=== PATIENT | female | born 1975 | race Caucasian/White ===

== ENCOUNTER → 2018-03-21 | Outpatient (CLI) | payer BC, MEDICARE, OTHER ==
[~2018-03-21] MED LIST: ALBIPROI INH; ALBU90I INH; ALBU90OI INH; ALBU90OI6 INH; ALBU90OI61 INH; ALPR.25 PO; AMOCLA500 PO; ATOR40TA; AZIT250 PO; Atarax10 MG PO; BENADRYL25 MG PO; CELE100; CELE200; CEPH250A PO; CEPH500; CEPH500 PO; CIPR500; CIPR500 PO; CLIN150; CLIN300 IV; CLIN300 PO; CLINDAMYCIN; CLOT1TC TOP; Cleocin HCl300 MG PO; DIPH50 PO; DOXY100 PO; DOXY100T53 PO; DULO30; Depo-Prove150 MG/11 IM; FAMO40 PO; FENT100TP; FEXPSEER PO; FLUC100 PO; FLUSAL1005 IH; FLUSAL115 IH; HYDACE10B; HYDACE5; HYDACE5 PO; HYDACE7.5; HYDMOR2 PO; LEVO750 PO; LISI20 PO; LORA.5; MEDR150I IM; MELA3 PO; MELATONIN10 M3 PO; METF850 PO; METPRE4DP PO; METR500 PO; MONT10T PO; MULVITA; MUPI2TO TOP; OXYACE5T PO; OXYC10ER; OXYC10ER PO; OXYC20ER; OXYC5; OXYC5 PO; PENVK500; PENVK500 PO; PRED20 PO; PREG75; PROM25; PROM25 PO; Pravachol40 MG PO; RXCLIN PO; RXHYDACE PO; RXHYDMOR2 PO; Roxicodone5 MG PO; SERT100; SERT100 PO; SULTRIDS PO; SUMA25; SUMA25 PO; TIZA4; TOPI25; VALA500 PO; VENL75ER; Ventolin Soln3 ML INH; Vibramycin100 MG PO; ZANAFLEX; Zanaflex4 MG PO; Zithromax250 MG PO; [UNRECOGNIZED DRUG - CODE] PO; [UNRECOGNIZED DRUG - OTHER]
[2018-03-22 15:06] LABS: HPV 16 Negative (Negative); HPV 18 Negative (Negative); HPV OTHER HR TYPES Negative (Negative)
== END | disposition home or self-care (01) ==
LOC: LAB SHORT 10:23 → LAB 10:23
PROVIDERS: Obstetrics & Gynecology
DX: Z01.419 Encounter for gynecological examination (general) (routine) without abnormal findings (principal)
CPT/HCPCS: 87624; G0123

== ENCOUNTER → 2018-07-28 | Outpatient (CLI) | payer BC, MEDICARE, OTHER | END | disposition home or self-care (01) | LOC: LAB SHORT 10:50 → LAB 10:50 | DX: N39.0 Urinary tract infection, site not specified (principal) | CPT/HCPCS: 87077; 87086; 87186 ==

== ENCOUNTER → 2018-11-03 | Outpatient (CLI) | payer BC, MEDICARE, OTHER | END | disposition home or self-care (01) | LOC: LAB 10:30 → LAB SHORT 10:30 | DX: N31.9 Neuromuscular dysfunction of bladder, unspecified (principal); R30.0 Dysuria | CPT/HCPCS: 87077; 87086; 87186 ==

== ENCOUNTER → 2018-11-29 | Outpatient (CLI) | payer BC, MEDICARE, OTHER | END | disposition home or self-care (01) | LOC: LAB 15:13 → LAB SHORT 15:13 | DX: N89.9 Noninflammatory disorder of vagina, unspecified (principal) | CPT/HCPCS: 87529 ==

== ENCOUNTER → 2018-12-01 | Outpatient (CLI) | payer BC, MEDICARE, OTHER | END | disposition home or self-care (01) | LOC: LAB 09:15 → LAB SHORT 09:15 | DX: N39.0 Urinary tract infection, site not specified (principal) | CPT/HCPCS: 87077; 87086; 87186 ==

== ENCOUNTER → 2018-12-18 | Outpatient (CLI) | payer BC, MEDICARE, OTHER | END | disposition home or self-care (01) | LOC: LAB SHORT 18:12 → LAB 18:12 | DX: N39.0 Urinary tract infection, site not specified (principal) | CPT/HCPCS: 87086 ==

== ENCOUNTER 2019-02-19 10:50 | Emergency (ER) | payer BC, MEDICARE, OTHER ==
[~2019-02-19] VITALS: Ht 172.7 cm; Wt 91.6 kg
== END 2019-02-19 12:40 | disposition home or self-care (01) ==
LOC: ER 10:50
DX: S93.402A Sprain of unspecified ligament of left ankle, initial encounter (principal); X58.XXXA Exposure to other specified factors, initial encounter; Z88.0 Allergy status to penicillin; Z88.8 Allergy status to other drugs, medicaments and biological substances; Z88.2 Allergy status to sulfonamides; Z88.5 Allergy status to narcotic agent; Z79.899 Other long term (current) drug therapy; Z79.84 Long term (current) use of oral hypoglycemic drugs; I10 Essential (primary) hypertension; E11.9 Type 2 diabetes mellitus without complications; F41.9 Anxiety disorder, unspecified; G43.909 Migraine, unspecified, not intractable, without status migrainosus; F17.210 Nicotine dependence, cigarettes, uncomplicated
CPT/HCPCS: 73610; 99283-25

== ENCOUNTER 2019-03-07 22:02 | Emergency (ER) | payer BC, MEDICARE, OTHER ==
[~2019-03-07] VITALS: Ht 172.7 cm; Wt 97.1 kg
[2019-03-07 23:50] LABS: Source, Urine Catheter
[2019-03-07 23:52] LABS: Bilirubin, Urine Neg (Neg); Blood, Urine 4+ (Neg); Glucose Qualitative, Urine Neg (Neg); Ketones, Urine 1+ (Neg); Leukocyte Esterase, Urine 3+ (Neg); Nitrite, Urine Neg (Neg); Protein, Urine 2+ (Neg); Specific Gravity, Urine 1.025 (1.003-1.022); Urobilinogen, Urine 1+ (Normal)
[2019-03-08 00:10] LABS: Appearance, Urine Cloudy (Clear); Color, Urine Yellow (P-Yellow)
[2019-03-08 00:11] LABS: Amorphous Mod (0-Heavy); Bacteria Mod /hpf; Calcium Oxalate Crystals Mod /hpf; Squamous Epithelial Cells Few /hpf (Few); White Blood Cells, Urine 25-50 /hpf (0-5)
[2019-03-08] MEDS ORDERED: Cipro500 MG PO (00:50)
== END 2019-03-08 01:03 | disposition home or self-care (01) ==
LOC: ER 22:02
PROVIDERS: Emergency Medicine
DX: T83.038A Leakage of other urinary catheter, initial encounter (principal); N39.0 Urinary tract infection, site not specified; Z88.0 Allergy status to penicillin; Z88.8 Allergy status to other drugs, medicaments and biological substances; Z88.5 Allergy status to narcotic agent; Z88.2 Allergy status to sulfonamides; Z79.899 Other long term (current) drug therapy; Z79.84 Long term (current) use of oral hypoglycemic drugs; J44.9 Chronic obstructive pulmonary disease, unspecified; E11.9 Type 2 diabetes mellitus without complications; F17.210 Nicotine dependence, cigarettes, uncomplicated
CPT/HCPCS: 81001; 87086; 99283

== ENCOUNTER 2019-03-20 19:48 | Emergency (ER) | payer BC, MEDICARE, OTHER ==
[~2019-03-20] VITALS: Ht 172.7 cm; Wt 97.1 kg
[~2019-03-20 19:48] MED LIST changes: +Cipro500 MG PO
[2019-03-20 20:35] LABS: BASOPHILS ABSOLUTE AUTO 0.02 K/mm3 (0.00-0.23); BASOPHILS PERCENT AUTO 0 % (0-2); EOSINOPHILS ABSOLUTE AUTO 0.25 K/mm3 (0.00-0.68); EOSINOPHILS PERCENT AUTO 3 % (0-6); Hematocrit 40.4 % (33.0-51.0); Hemoglobin 13.7 g/dL (11.5-16.0); IMMATURE GRAN ABSOLUTE AUTO 0.01 K/mm3 (0.00-0.10); IMMATURE GRAN PERCENT AUTO 0 % (0-1); LYMPHOCYTES ABSOLUTE AUTO 2.52 K/mm3 (0.84-5.20); LYMPHOCYTES PERCENT AUTO 27 % (21-46); MONOCYTES ABSOLUTE AUTO 0.57 K/mm3 (0.16-1.47); MONOCYTES PERCENT AUTO 6 % (4-13); Mean Corpuscular HGB 32.9 pg (26.0-34.0); Mean Corpuscular HGB Conc 33.9 g/dL (31.5-36.5); Mean Corpuscular Volume 97 fL (80-100); Mean Platelet Volume 9.1 fL (9.1-12.4); NEUTROPHILS ABSOLUTE AUTO 6.03 K/mm3 (1.96-9.15); NEUTROPHILS PERCENT AUTO 64 % (41-73); Platelet Count 325 K/mm3 (150-400); RDW Coefficient Variation 13.4 % (11.7-14.2); RDW Standard Deviation 47.9 fL (35.1-46.3); Red Blood Cell Count 4.17 M/mm3 (3.80-5.20)
[2019-03-20 20:54] LABS: Alanine Aminotransfer (ALT/SGP 20 U/L (12-78); Albumin, Blood 3.8 g/dL (3.4-5.0); Albumin/Globulin Ratio 1.1 (0.8-1.8); Alk Phos 131 U/L (50-136); Anion Gap 7 mmol/L (6-16); Aspartate Aminotrans (AST/SGOT 16 U/L (12-37); Bilirubin, Total 0.5 mg/dL (0.1-1.0); Blood Urea Nitrogen 13 mg/dL (8-24); Bun/Creatinine Ratio 18.4 (12.0-20.0); CO2, Blood 25 mmol/L (21-32); Calcium, Blood 8.8 mg/dL (8.5-10.1); Chloride, Blood 109 mmol/L (98-108); Creatinine, Blood 0.71 mg/dL (0.40-1.00); Globulin, Blood 3.6 g/dL (2.2-4.0); Glomerular Filtration Rate >60 (60-); Glucose, Blood 148 mg/dL (70-99); Sodium, Blood 141 mmol/L (136-145); Total Protein, Blood 7.4 g/dL (6.4-8.2)
[2019-03-20 21:23] LABS: Source, Urine Urostomy Bag
[2019-03-20 21:25] LABS: Bilirubin, Urine Neg (Neg); Blood, Urine 4+ (Neg); Glucose Qualitative, Urine Neg (Neg); Ketones, Urine 1+ (Neg); Leukocyte Esterase, Urine 3+ (Neg); Nitrite, Urine Neg (Neg); Protein, Urine 3+ (Neg); Urobilinogen, Urine 1+ (Normal)
[2019-03-20 21:26] LABS: Appearance, Urine Cloudy (Clear); Color, Urine Yellow (P-Yellow)
[2019-03-20 21:28] LABS: Bacteria Few /hpf; Mucus Light ({null, 0-Heavy}); Squamous Epithelial Cells Few /hpf (Few); Yeast/Fungi Urine Mod /hpf
== END 2019-03-20 22:05 | disposition home or self-care (01) ==
LOC: ER 19:48
PROVIDERS: Physician Assistant
DX: N39.0 Urinary tract infection, site not specified (principal); J44.9 Chronic obstructive pulmonary disease, unspecified; E11.9 Type 2 diabetes mellitus without complications; F17.210 Nicotine dependence, cigarettes, uncomplicated; Z88.0 Allergy status to penicillin; Z88.6 Allergy status to analgesic agent; Z91.09 Other allergy status, other than to drugs and biological substances; Z88.2 Allergy status to sulfonamides; Z88.5 Allergy status to narcotic agent; Z88.8 Allergy status to other drugs, medicaments and biological substances; Z79.899 Other long term (current) drug therapy; Z79.84 Long term (current) use of oral hypoglycemic drugs
CPT/HCPCS: 36415; 80053; 81001; 85025; 87070; 87075; 87086; 87205; 99283

== ENCOUNTER → 2019-07-27 | Outpatient (CLI) | payer BC, MEDICARE, OTHER | END | disposition home or self-care (01) | LOC: LAB 12:56 → LAB SHORT 12:56 | DX: R82.90 Unspecified abnormal findings in urine (principal) | CPT/HCPCS: 87077; 87086; 87186 ==

== ENCOUNTER → 2019-09-19 | Outpatient (CLI) | payer BC, MEDICARE, OTHER | LOC: LAB 18:10 → LAB SHORT 18:10 | DX: N89.8 Other specified noninflammatory disorders of vagina (principal) | CPT/HCPCS: 87070; 87205 ==

== ENCOUNTER → 2019-12-15 | Outpatient (CLI) | payer BC, MEDICARE, OTHER | END | disposition home or self-care (01) | LOC: LAB EV 11:41 → LAB SHORT 11:41 | DX: N39.0 Urinary tract infection, site not specified (principal) | CPT/HCPCS: 87086 ==

== ENCOUNTER → 2020-04-15 | Outpatient (CLI) | payer BC, MEDICARE, OTHER ==
[~2020-04-15] MED LIST changes: +ALPR.5 PO; +DEPO-PROVE150 MG/1 M IM; +GABA300 PO; +GLUCOPHAGE1000 M1 PO; +Imitrex100 MG PO; +MELATONIN 5 MG1 EAC1 PO; +MELATONIN10 M4 PO; +OXYCONTIN20 MG PO; +TIZA4 PO
[2020-04-15 09:17] LABS: BASOPHILS ABSOLUTE AUTO 0.07 K/mm3 (0.00-0.23); BASOPHILS PERCENT AUTO 1 % (0-2); EOSINOPHILS ABSOLUTE AUTO 0.26 K/mm3 (0.00-0.68); EOSINOPHILS PERCENT AUTO 3 % (0-6); Hematocrit 44.9 % (33.0-51.0); Hemoglobin 15.2 g/dL (11.5-16.0); IMMATURE GRAN ABSOLUTE AUTO 0.02 K/mm3 (0.00-0.10); IMMATURE GRAN PERCENT AUTO 0 % (0-1); LYMPHOCYTES PERCENT AUTO 26 % (21-46); MONOCYTES ABSOLUTE AUTO 0.61 K/mm3 (0.16-1.47); MONOCYTES PERCENT AUTO 6 % (4-13); Mean Corpuscular HGB 34.4 pg (26.0-34.0); Mean Corpuscular HGB Conc 33.9 g/dL (31.5-36.5); Mean Corpuscular Volume 102 fL (80-100); Mean Platelet Volume 9.4 fL (9.1-12.4); NEUTROPHILS ABSOLUTE AUTO 6.13 K/mm3 (1.96-9.15); NEUTROPHILS PERCENT AUTO 64 % (41-73); Platelet Count 279 K/mm3 (150-400); RDW Coefficient Variation 13.4 % (11.7-14.2); RDW Standard Deviation 50.4 fL (35.1-46.3); Red Blood Cell Count 4.42 M/mm3 (3.80-5.20); White Blood Cell Count 9.59 K/mm3 (4.00-11.30)
[2020-04-15 09:41] LABS: Alanine Aminotransfer (ALT/SGP 37 U/L (12-78); Albumin, Blood 3.7 g/dL (3.4-5.0); Alk Phos 114 U/L (50-136); Anion Gap 6 mmol/L (6-16); Aspartate Aminotrans (AST/SGOT 16 U/L (12-37); Bilirubin, Total 0.5 mg/dL (0.1-1.0); Blood Urea Nitrogen 8 mg/dL (8-24); Bun/Creatinine Ratio 14.2 (12.0-20.0); CO2, Blood 25 mmol/L (21-32); Calcium, Blood 8.8 mg/dL (8.5-10.1); Chloride, Blood 111 mmol/L (98-108); Creatinine, Blood 0.56 mg/dL (0.40-1.00); Globulin, Blood 3.6 g/dL (2.2-4.0); Glomerular Filtration Rate >60 (60-); Glucose, Blood 171 mg/dL (70-99); Sodium, Blood 142 mmol/L (136-145); Total Protein, Blood 7.3 g/dL (6.4-8.2)
[2020-04-15 10:09] LABS: CHOL/HDL RATIO 4.9; Cholesterol 156 mg/dL (50-200); HDL Cholesterol 32 mg/dL (>39); LDL/HDL RATIO 2.7; Low Density Lipoprotein Chol 88 mg/dL (0-110); Triglycerides 182 mg/dL (30-160); Very Low Density Lipoprot Chol 36 mg/dL (6-32)
== END ==
LOC: OLS 07:21 → LAB SHORT 07:21 → LAB FUT 09-18 10:30
PROVIDERS: Family Medicine
DX: E11.21 Type 2 diabetes mellitus with diabetic nephropathy (principal); E78.5 Hyperlipidemia, unspecified
CPT/HCPCS: 36415; 80053; 80061; 83036; 85025

== ENCOUNTER 2020-09-09 09:28 | Emergency (ER) | payer MEDICARE, OTHER, BC ==
[~2020-09-09] VITALS: Ht 175.3 cm; Wt 99.8 kg
[2020-09-09 10:22] LABS: Source, Urine Catheter
[2020-09-09 10:26] LABS: BASOPHILS ABSOLUTE AUTO 0.08 K/mm3 (0.00-0.23); BASOPHILS PERCENT AUTO 1 % (0-2); EOSINOPHILS ABSOLUTE AUTO 0.33 K/mm3 (0.00-0.68); EOSINOPHILS PERCENT AUTO 3 % (0-6); Hematocrit 44.7 % (33.0-51.0); Hemoglobin 15.4 g/dL (11.5-16.0); IMMATURE GRAN ABSOLUTE AUTO 0.04 K/mm3 (0.00-0.10); IMMATURE GRAN PERCENT AUTO 0 % (0-1); LYMPHOCYTES ABSOLUTE AUTO 2.54 K/mm3 (0.84-5.20); LYMPHOCYTES PERCENT AUTO 23 % (21-46); MONOCYTES ABSOLUTE AUTO 0.55 K/mm3 (0.16-1.47); MONOCYTES PERCENT AUTO 5 % (4-13); Mean Corpuscular HGB 33.4 pg (26.0-34.0); Mean Corpuscular HGB Conc 34.5 g/dL (31.5-36.5); Mean Corpuscular Volume 97 fL (80-100); Mean Platelet Volume 9.6 fL (9.1-12.4); NEUTROPHILS ABSOLUTE AUTO 7.74 K/mm3 (1.96-9.15); NEUTROPHILS PERCENT AUTO 69 % (41-73); Platelet Count 292 K/mm3 (150-400); RDW Coefficient Variation 12.8 % (11.7-14.2); RDW Standard Deviation 45.5 fL (35.1-46.3); Red Blood Cell Count 4.61 M/mm3 (3.80-5.20); White Blood Cell Count 11.28 K/mm3 (4.00-11.30)
[2020-09-09 10:28] LABS: Appearance, Urine Hazy (Clear); Bilirubin, Urine Neg (Neg); Blood, Urine 2+ (Neg); Color, Urine Yellow (P-Yellow); Glucose Qualitative, Urine Neg (Neg); Ketones, Urine 1+ (Neg); Leukocyte Esterase, Urine 2+ (Neg); Nitrite, Urine Neg (Neg); Protein, Urine 1+ (Neg); Urobilinogen, Urine NORM (Normal)
[2020-09-09 10:43] LABS: Bacteria Few /hpf; Squamous Epithelial Cells Few /hpf (Few)
[2020-09-09 10:46] LABS: Alanine Aminotransfer (ALT/SGP 30 U/L (12-78); Albumin, Blood 3.9 g/dL (3.4-5.0); Albumin/Globulin Ratio 1.1 (0.8-1.8); Alk Phos 111 U/L (50-136); Anion Gap 8 mmol/L (6-16); Aspartate Aminotrans (AST/SGOT 14 U/L (12-37); Bilirubin, Total 0.4 mg/dL (0.1-1.0); Blood Urea Nitrogen 8 mg/dL (8-24); Bun/Creatinine Ratio 14.1 (12.0-20.0); CO2, Blood 23 mmol/L (21-32); Calcium, Blood 8.9 mg/dL (8.5-10.1); Chloride, Blood 107 mmol/L (98-108); Creatinine, Blood 0.57 mg/dL (0.40-1.00); Globulin, Blood 3.7 g/dL (2.2-4.0); Glomerular Filtration Rate >60 (60-); Glucose, Blood 167 mg/dL (70-99); Potassium, Blood 4.3 mmol/L (3.5-5.5); Sodium, Blood 138 mmol/L (136-145); Total Protein, Blood 7.6 g/dL (6.4-8.2)
[2020-09-09] MEDS ORDERED: Levaquin750 MG PO (11:35)
== END 2020-09-09 11:43 | disposition home or self-care (01) ==
LOC: ER 09:28
PROVIDERS: Physician Assistant
DX: N39.0 Urinary tract infection, site not specified (principal); J44.9 Chronic obstructive pulmonary disease, unspecified; E11.9 Type 2 diabetes mellitus without complications; F17.210 Nicotine dependence, cigarettes, uncomplicated; Z88.0 Allergy status to penicillin; Z88.8 Allergy status to other drugs, medicaments and biological substances; Z88.5 Allergy status to narcotic agent; Z88.2 Allergy status to sulfonamides; Z79.899 Other long term (current) drug therapy; Z79.891 Long term (current) use of opiate analgesic; Z79.84 Long term (current) use of oral hypoglycemic drugs
CPT/HCPCS: 36415; 80053; 81001; 83690; 85025; 87086; 99284

== ENCOUNTER 2020-09-11 08:37 | Emergency (ER) | payer MEDICARE, OTHER ==
[~2020-09-11] VITALS: Ht 175.3 cm; Wt 102.1 kg
[~2020-09-11 08:37] MED LIST changes: +Levaquin750 MG PO
== END 2020-09-11 10:06 | disposition home or self-care (01) ==
LOC: ER 08:37
DX: Z46.6 Encounter for fitting and adjustment of urinary device (principal); J44.9 Chronic obstructive pulmonary disease, unspecified; E11.9 Type 2 diabetes mellitus without complications; F17.210 Nicotine dependence, cigarettes, uncomplicated; Z88.0 Allergy status to penicillin; Z88.2 Allergy status to sulfonamides; Z79.899 Other long term (current) drug therapy
CPT/HCPCS: 51705; 99283-25; C2627

== ENCOUNTER → 2021-01-13 | Outpatient (CLI) | payer MEDICARE, OTHER ==
[2021-01-14 17:11] LABS: HPV 16 Negative (Negative); HPV 18 Negative (Negative); HPV OTHER HR TYPES Negative (Negative)
== END ==
LOC: LAB SHORT 13:44 → LAB 13:44
PROVIDERS: Registered Nurse Community Health
DX: Z12.4 Encounter for screening for malignant neoplasm of cervix (principal)
CPT/HCPCS: 87624; G0123

== ENCOUNTER → 2021-02-05 | Outpatient (CLI) | payer MEDICARE, OTHER | LOC: LAB SHORT 12:47 → LAB 12:47 | DX: N64.52 Nipple discharge (principal) | CPT/HCPCS: 87070; 87075; 87077; 87186; 87205 ==

== ENCOUNTER → 2021-05-07 | Outpatient (CLI) | payer MEDICARE, OTHER ==
[2021-05-07 20:08] LABS: BASOPHILS PERCENT AUTO 1 % (0-2); EOSINOPHILS ABSOLUTE AUTO 0.27 K/mm3 (0.00-0.68); EOSINOPHILS PERCENT AUTO 3 % (0-6); Hematocrit 46.3 % (33.0-51.0); Hemoglobin 15.8 g/dL (11.5-16.0); IMMATURE GRAN ABSOLUTE AUTO 0.03 K/mm3 (0.00-0.10); IMMATURE GRAN PERCENT AUTO 0 % (0-1); LYMPHOCYTES ABSOLUTE AUTO 3.37 K/mm3 (0.84-5.20); LYMPHOCYTES PERCENT AUTO 31 % (21-46); MONOCYTES ABSOLUTE AUTO 0.63 K/mm3 (0.16-1.47); MONOCYTES PERCENT AUTO 6 % (4-13); Mean Corpuscular HGB 33.7 pg (26.0-34.0); Mean Corpuscular HGB Conc 34.1 g/dL (31.5-36.5); Mean Corpuscular Volume 99 fL (80-100); Mean Platelet Volume 10.1 fL (9.1-12.4); NEUTROPHILS ABSOLUTE AUTO 6.41 K/mm3 (1.96-9.15); NEUTROPHILS PERCENT AUTO 59 % (41-73); Platelet Count 334 K/mm3 (150-400); RDW Coefficient Variation 12.8 % (11.7-14.2); RDW Standard Deviation 46.7 fL (35.1-46.3); Red Blood Cell Count 4.69 M/mm3 (3.80-5.20); White Blood Cell Count 10.81 K/mm3 (4.00-11.30)
[2021-05-07 20:29] LABS: Alanine Aminotransfer (ALT/SGP 17 U/L (12-78); Albumin, Blood 3.9 g/dL (3.4-5.0); Alk Phos 106 U/L (50-136); Anion Gap 5 mmol/L (6-16); Aspartate Aminotrans (AST/SGOT 13 U/L (12-37); Bilirubin, Total 0.4 mg/dL (0.1-1.0); Blood Urea Nitrogen 9 mg/dL (8-24); Bun/Creatinine Ratio 14.8 (12.0-20.0); CO2, Blood 25 mmol/L (21-32); Calcium, Blood 9.4 mg/dL (8.5-10.1); Chloride, Blood 105 mmol/L (98-108); Creatinine, Blood 0.61 mg/dL (0.40-1.00); Globulin, Blood 3.9 g/dL (2.2-4.0); Glomerular Filtration Rate >60 (60-); Glucose, Blood 150 mg/dL (70-99); Magnesium, Blood 2.2 mg/dL (1.6-2.4); Potassium, Blood 4.1 mmol/L (3.5-5.5); Sodium, Blood 135 mmol/L (136-145); Total Protein, Blood 7.8 g/dL (6.4-8.2)
== END | disposition home or self-care (01) ==
LOC: LAB SHORT 14:00 → LAB 14:00
PROVIDERS: Family Medicine
DX: G43.109 Migraine with aura, not intractable, without status migrainosus (principal); R19.7 Diarrhea, unspecified
CPT/HCPCS: 80053; 83735; 84100; 84443; 85025

== ENCOUNTER → 2021-10-12 | Outpatient (CLI) | payer MEDICARE, OTHER | END | disposition home or self-care (01) | LOC: LAB SHORT 09:42 | DX: R33.9 Retention of urine, unspecified (principal) | CPT/HCPCS: 87077; 87086; 87186 ==

== ENCOUNTER 2022-03-12 16:45 | Observation (INO) | payer MEDICARE, OTHER ==
[~2022-03-12] VITALS: Ht 172.7 cm; Wt 95.7 kg
[2022-03-12 20:36] LABS: BASOPHILS ABSOLUTE AUTO 0.08 K/mm3 (0.00-0.23); BASOPHILS PERCENT AUTO 1 % (0-2); EOSINOPHILS ABSOLUTE AUTO 0.25 K/mm3 (0.00-0.68); EOSINOPHILS PERCENT AUTO 2 % (0-6); Hematocrit 41.1 % (33.0-51.0); Hemoglobin 14.2 g/dL (11.5-16.0); IMMATURE GRAN ABSOLUTE AUTO 0.03 K/mm3 (0.00-0.10); IMMATURE GRAN PERCENT AUTO 0 % (0-1); LYMPHOCYTES ABSOLUTE AUTO 4.29 K/mm3 (0.84-5.20); LYMPHOCYTES PERCENT AUTO 37 % (21-46); MONOCYTES ABSOLUTE AUTO 0.73 K/mm3 (0.16-1.47); MONOCYTES PERCENT AUTO 6 % (4-13); Mean Corpuscular HGB 34.4 pg (26.0-34.0); Mean Corpuscular HGB Conc 34.5 g/dL (31.5-36.5); Mean Corpuscular Volume 100 fL (80-100); Mean Platelet Volume 9.1 fL (9.1-12.4); NEUTROPHILS PERCENT AUTO 54 % (41-73); Platelet Count 259 K/mm3 (150-400); RDW Coefficient Variation 15.1 % (11.7-14.2); RDW Standard Deviation 55.1 fL (35.1-46.3); Red Blood Cell Count 4.13 M/mm3 (3.80-5.20); White Blood Cell Count 11.68 K/mm3 (4.00-11.30)
[2022-03-12 20:58] LABS: Albumin, Blood 3.8 g/dL (3.4-5.0); Albumin/Globulin Ratio 1.1 (0.8-1.8); Bilirubin, Total 0.4 mg/dL (0.1-1.0); Bun/Creatinine Ratio 15.3 (12.0-20.0); Calcium, Blood 9.2 mg/dL (8.5-10.1); Creatinine, Blood 0.72 mg/dL (0.40-1.00); Globulin, Blood 3.4 g/dL (2.2-4.0); Magnesium, Blood 2.1 mg/dL (1.6-2.4); Potassium, Blood 3.7 mmol/L (3.5-5.5); Total Protein, Blood 7.2 g/dL (6.4-8.2)
[2022-03-12] MEDS ORDERED: MACROBID 100 M100 MG PO (21:32)
[2022-03-12] MEDS ORDERED: PROBIOTIC1 EA13 PO (21:33)
[2022-03-12] MEDS ORDERED: MAGCIT300 PO (21:34)
[2022-03-12] MEDS ORDERED: MULVITA PO (21:35)
[2022-03-12] MEDS ORDERED: TOPI100 PO (21:37)
[2022-03-12] MEDS ORDERED: [UNRECOGNIZED DRUG - CODE] PO (21:37)
[2022-03-12] MEDS ORDERED: GABA800 PO (21:43)
--- NOTE | 2022-03-12 23:58 | NUR ---
PATIENT ARRIVED TO ROOM 362 A&OX4, NO COMPLAINTS OF PAIN. NEGATIVE NEURO WITH EXCEPTION OF VERY LARGE RIGHT FIELD CUT APPROXIMATELY 10 DEGREES FROM CENTER. NO OTHER DEFICITS NOTED UPON ARRIVAL
[2022-03-13 04:55] LABS: CHOL/HDL RATIO 7.8; Cholesterol 180 mg/dL (50-200); HDL Cholesterol 23 mg/dL (>39); LDL/HDL RATIO 4.6; Low Density Lipoprotein Chol 106 mg/dL (0-110); Triglycerides 256 mg/dL (30-160); Very Low Density Lipoprot Chol 51 mg/dL (6-32)
--- NOTE | 2022-03-13 06:51 | NUR ---
PATIENT ARRIVED TO ROOM 362 AT 2310 FROM ER. SHE IS VERY AWAKE AND ALERT AND ORIENTED X4. RIGHT SIDED FIELD CUT ABOUT 10 DEGREES TO THE RIGHT OF CENTER. WITH BOTH EYES OPEN. ABOUT 5 DEGREES WITH JUST THE RIGHT EYE. PATIENT HAS NO OTHER DEFICITS ON ASSESSMENT. STRENGTH STRONG AND EQUAL IN UPPER AND LOWER EXTREMITIES, SPEECH CLEAR WITHOUT ANY FACIAL DROOP. UNABLE TO ASSESS PUPILS THEY WERE PINPOINT ON ARRIVAL TO THE FLOOR AND REMAINED SO UNTIL SHE FELL ASLEEP. PATIENT STATED SHE HAD TAKEN ALL OF HER OWN MEDS PRIOR TO LEAVING THE ER (ALL PILLS IN RX BOTTLES IN HER PURSE) NO LOCK BOX IN PATIENT ROOM, SO PATIENT SURRENDERED ALL MEDS TO THIS RN TO PLACE IN LOCKED MED DRAWER UNTIL MOTHER ARRIVES IN THE MORNING, AND SHE WILL TAKE THEM ALL HOME. WILL CONTINUE CLOSE MONITORING UNTIL ONCOMING RN ARRIVES.
--- NOTE | 2022-03-13 10:57 | NUR ---
PT'S MOM TOOK HOME PT'S HOME MEDICATIONS THAT WERE BEING KEPT IN THE DRAWER.
--- NOTE | 2022-03-13 15:39 | NUR ---
SHIFT SUMMARY PT A&OX4, VSS/RA, TELE NSR 60s, CBG AC ONLY/COVERAGE PER EMAR. PAIN MANAGED AT BASELINE TREATMENT. DELICIA CARDIAC DIET. SUPRAPUBIC CATH WITH LARGE AMT LT YELLOW URINE OUT, PT REP CATH SCHEDULED TO BE CHANGED AT UROLOGY APPT ON 03/18/22, SHE MANAGES CATH HERSELF. PT REP R PERIPHERAL VISION DECREASED MIDLINE OUT AND HX OF LEFT EYE LEGALLY BLIND. RADHA STRENGTH WNL, NO FACIAL DROOP, SPEECH CLEAR. SBA STAND PIVOT TO WC, REPOSITIONS SELF WELL IN BED. WILL REPORT TO ONCOMING RN.
--- NOTE | 2022-03-13 20:54 | NUR ---
PT STATED PAIN ON LEFT SIDE. RETOOK BLOOD PRESSURE. NOTIFIED NURSE.
--- NOTE | 2022-03-14 02:07 | NUR ---
PATIENT OFF FLOOR AT 0145 TO WALK TO [place] VENDING MACHINES IN [place]. SANDWICH BOARD CARRIER NOTIFIED AND BOX REMOVED UNTIL PATIENT RETURNS TO ROOM. THIS RN DID NOTIFY THE PATIENT OF HOSPITAL SMOKING POLICY BOTH TONIGHT WELL LAST NIGHT. PATIENT DENIES SHE IS GOING OUT TO SMOKE. DOCK BOSS INFORMED OF CURRENT SITUATION.
--- NOTE | 2022-03-14 02:53 | NUR ---
NO CHANGES OVERNIGHT IN NEURO STATUS. PATIENT STRONG ALL 4 EXTREMITIES, SPEECH CLEAR, SMILE SYMETRICAL, TONGUE MIDLINE. UNFORTUNATELY, NO CHANGE IN RIGHT FIELD CUT. PATIENT UP AMBULATING IN HALLS AND DOWN TO [place] A GOOD PORTION OF THE NIGHT. STEADY ON FEET AND WITHOUT DIFFICULTY. TELEMETRY SB-SR 50'S TO 60'S. VSS. WILL CONTINUE CLOSE MONITORING THROUGHOUT SHIFT.
[2022-03-14 06:06] LABS: BASOPHILS ABSOLUTE AUTO 0.04 K/mm3 (0.00-0.23); BASOPHILS PERCENT AUTO 1 % (0-2); EOSINOPHILS ABSOLUTE AUTO 0.17 K/mm3 (0.00-0.68); EOSINOPHILS PERCENT AUTO 2 % (0-6); Hematocrit 40.1 % (33.0-51.0); Hemoglobin 13.6 g/dL (11.5-16.0); IMMATURE GRAN ABSOLUTE AUTO 0.04 K/mm3 (0.00-0.10); IMMATURE GRAN PERCENT AUTO 1 % (0-1); LYMPHOCYTES ABSOLUTE AUTO 2.21 K/mm3 (0.84-5.20); LYMPHOCYTES PERCENT AUTO 25 % (21-46); MONOCYTES ABSOLUTE AUTO 0.46 K/mm3 (0.16-1.47); MONOCYTES PERCENT AUTO 5 % (4-13); Mean Corpuscular HGB 33.8 pg (26.0-34.0); Mean Corpuscular HGB Conc 33.9 g/dL (31.5-36.5); Mean Corpuscular Volume 100 fL (80-100); Mean Platelet Volume 9.3 fL (9.1-12.4); NEUTROPHILS ABSOLUTE AUTO 5.96 K/mm3 (1.96-9.15); NEUTROPHILS PERCENT AUTO 67 % (41-73); Platelet Count 244 K/mm3 (150-400); RDW Coefficient Variation 14.8 % (11.7-14.2); Red Blood Cell Count 4.02 M/mm3 (3.80-5.20); White Blood Cell Count 8.88 K/mm3 (4.00-11.30)
[2022-03-14 06:49] LABS: Albumin, Blood 3.4 g/dL (3.4-5.0); Bilirubin, Total 0.5 mg/dL (0.1-1.0); Bun/Creatinine Ratio 19.3 (12.0-20.0); Calcium, Blood 8.4 mg/dL (8.5-10.1); Creatinine, Blood 0.67 mg/dL (0.40-1.00); Globulin, Blood 3.3 g/dL (2.2-4.0); Potassium, Blood 4.1 mmol/L (3.5-5.5); Total Protein, Blood 6.7 g/dL (6.4-8.2)
--- NOTE | 2022-03-14 07:30 | NUR ---
ASSUMED CARE: PT RESTING QUIETLY IN BED. NSR ON TELE. NO ACUTE NEEDS AT THIS TIME.
--- NOTE | 2022-03-14 14:55 | NUR ---
PT STARTING TO GET HEADACHE AND BECAME TEARFUL AND ANXIOUS BECAUSE SHE IS AFRAID THAT IT WILL BE ANOTHER STROKE BECAUSE THAT IS HOW IT PRESENTED THE FIRST TIME. MEDICATED AND EDUCATED REGARDING STROKE. EDUCATED PT THAT BECAUSE THIS STROKE PRESENTED LIKE A MIGRAINE, HER MIGRAINES MAY CHANGE AND TREATMENT MAY NEED CHANGING TOO. RELAYED TO PT THAT THE IDEA IS TO USE PREVIOUSLY KNOWN TREATMENT AND IF THAT DOES NOT WORK, SEEK HELP BUT ALSO KNOW THAT IF PREVIOUS TREATMENT DOES NOT WORK, IT DOES NOT NECESSARILY MEAN THAT A STROKE IS OCCURING, JUST THAT HE MIGRAINES ARE CHANGING AND TREATMENT COULD NEED CHANGING. NEURO ASSESSMENT REMAINS UNCHANGED. SPOKE WITH DR FLANAGAN ABOUT THIS AND AGREED. AWAITING RESULT FOR ECHO. CALL TO DR SARABIA WHO STATES HE IS AWARE BUT HAS NOT READ RESULT YET.
[2022-03-14] MEDS ORDERED: ATOR40TA PO (15:35)
[2022-03-14] MEDS ORDERED: Aspir 8181 MG PO (15:35)
--- NOTE | 2022-03-14 16:30 | NUR ---
DISCHARGE: DISCUSSED MEDICATION CHANGES AND FOLLOW UP APPOINTMENTS WELL SYMPTOMS TO WATCH FOR WITH PT AND FAMILY. PT AMBULATORY UPON DISCHARGE. DENIES FURTHER NEEDS OR CONCERNS. IV DC'D WNL.
== END 2022-03-14 17:10 | disposition home or self-care (01) ==
LOC: ER 16:45 → MEDS 16:46
PROVIDERS: Family Medicine; Student in an Organized Health Care Education/Training Program; ADMIT Hospitalist
DX: I63.9 Cerebral infarction, unspecified (principal); H53.461 Homonymous bilateral field defects, right side; G43.109 Migraine with aura, not intractable, without status migrainosus; E11.9 Type 2 diabetes mellitus without complications; E78.5 Hyperlipidemia, unspecified; N39.0 Urinary tract infection, site not specified; Z79.82 Long term (current) use of aspirin; Z88.0 Allergy status to penicillin; Z88.2 Allergy status to sulfonamides; Z88.8 Allergy status to other drugs, medicaments and biological substances; J44.9 Chronic obstructive pulmonary disease, unspecified; F17.210 Nicotine dependence, cigarettes, uncomplicated
CPT/HCPCS: 36415; 70450; 70544; 70551; 80053; 80061; 82947; 83036; 83735; 84443; 85025; 93306; 97110; 97161; 99285-25; A9270

== ENCOUNTER → 2022-11-04 | Outpatient (CLI) | payer MEDICARE, OTHER ==
[~2022-11-04] MED LIST changes: +ATOR40TA PO; +Aspir 8181 MG PO; +GABA800 PO; +LIDO700A20 TOP; +MACROBID 100 M100 MG PO; +MAGCIT300 PO; +MULVITA PO; +NITR100CA PO; +PROBIOTIC1 EA13 PO; +TOPI100 PO; +[UNRECOGNIZED DRUG - CODE] PO
[2022-11-04 17:56] LABS: International Normalized Ratio 0.95
== END | disposition home or self-care (01) ==
LOC: LAB SHORT 15:44 → LAB 15:44
PROVIDERS: Family Medicine
DX: Z09 Encounter for follow-up examination after completed treatment for conditions other than malignant neoplasm (principal); Z86.73 Personal history of transient ischemic attack (TIA), and cerebral infarction without residual deficits
CPT/HCPCS: 85610

== ENCOUNTER → 2022-11-08 | Outpatient (CLI) | payer MEDICARE, OTHER ==
[2022-11-08 19:08] LABS: International Normalized Ratio 1.57; Prothrombin Time Results 16.1 Sec (9.7-11.5)
== END | disposition home or self-care (01) ==
LOC: LAB SHORT 14:27 → LAB 14:27
PROVIDERS: Family Medicine
DX: Z09 Encounter for follow-up examination after completed treatment for conditions other than malignant neoplasm (principal); Z86.73 Personal history of transient ischemic attack (TIA), and cerebral infarction without residual deficits
CPT/HCPCS: 85610

== ENCOUNTER 2022-11-30 10:23 | Inpatient (IN) | payer MEDICARE, OTHER ==
[~2022-11-30] VITALS: Ht 175.3 cm; Wt 95.0 kg
[~2022-11-30 10:23] MED LIST changes: -ALBU2.5V5 INH; -HUMALOG KW100 UNIT/1 SC; -IPRAT-ALBUT 0.5-3 ML INH; -LACT PO; -MIRALAX17 GM PO; -MOXI400 PO; -Prednisone10 MG PO; -WARF5 PO
[2022-11-30] MEDS ORDERED: WARF5 PO (17:04)
[2022-11-30 17:08] LABS: Human Rhinovirus/Enterovirus Detected (NOT DETECT)
[2022-11-30 17:09] LABS: Adenovirus Not Detected (NOT DETECT); Bordetella pertussis Not Detected (NOT DETECT); Chlamydophila pneumoniae Not Detected (NOT DETECT); Coronavirus 229E Not Detected (NOT DETECT); Coronavirus HKU1 Not Detected (NOT DETECT); Coronavirus NL63 Not Detected (NOT DETECT); Coronavirus OC43 Not Detected (NOT DETECT); Human Metapneumovirus Not Detected (NOT DETECT); Influenza A/2009-H1 Not Detected (NOT DETECT); Influenza A/H1 Not Detected (NOT DETECT); Influenza A/H3 Not Detected (NOT DETECT); Influenza B Not Detected (NOT DETECT); Mycoplasma pneumoniae Not Detected (NOT DETECT); Parainfluenza Virus 1 Not Detected (NOT DETECT); Parainfluenza Virus 2 Not Detected (NOT DETECT); Parainfluenza Virus 3 Not Detected (NOT DETECT); Parainfluenza Virus 4 Not Detected (NOT DETECT); Respiratory Syncytial Virus Not Detected (NOT DETECT); SARS-Cov-2 (COVID-19), BioFire Not Detected (NOT DETECT)
[2022-11-30 17:13] LABS: International Normalized Ratio 2.32; Prothrombin Time Results 23.2 Sec (9.7-11.5)
[2022-11-30 18:24] VITALS: BP 110/67
[2022-11-30 19:46] VITALS: BP 125/66
[2022-11-30 23:49] VITALS: BP 121/69
[2022-12-01 03:49] VITALS: BP 148/83
[2022-12-01 06:17] LABS: BASOPHILS ABSOLUTE AUTO 0.01 K/mm3 (0.00-0.23); BASOPHILS PERCENT AUTO 0 % (0-2); EOSINOPHILS PERCENT AUTO 0 % (0-6); Hematocrit 36.9 % (33.0-51.0); Hemoglobin 12.5 g/dL (11.5-16.0); IMMATURE GRAN ABSOLUTE AUTO 0.06 K/mm3 (0.00-0.10); IMMATURE GRAN PERCENT AUTO 1 % (0-1); LYMPHOCYTES ABSOLUTE AUTO 0.49 K/mm3 (0.84-5.20); LYMPHOCYTES PERCENT AUTO 5 % (21-46); MONOCYTES PERCENT AUTO 2 % (4-13); Mean Corpuscular HGB Conc 33.9 g/dL (31.5-36.5); Mean Corpuscular Volume 100 fL (80-100); Mean Platelet Volume 9.4 fL (9.1-12.4); NEUTROPHILS ABSOLUTE AUTO 8.93 K/mm3 (1.96-9.15); NEUTROPHILS PERCENT AUTO 92 % (41-73); Platelet Count 197 K/mm3 (150-400); RDW Coefficient Variation 13.8 % (11.7-14.2); RDW Standard Deviation 51.5 fL (35.1-46.3); Red Blood Cell Count 3.68 M/mm3 (3.80-5.20); White Blood Cell Count 9.69 K/mm3 (4.00-11.30)
--- NOTE | 2022-12-01 06:25 | NUR ---
SHIFT SUMMARY PT IS A/Ox4 AND COOPERATIVE WITH CARE PROVIDED BY MEMBERS OF STAFF. ANSWERS QUESTIONS APPROPRIATELY AND ABLE TO MAKE HER NEEDS KNOWN. NO ACUTE EVENTS OVERNIGHT FOR PT WAS BALE TO GET INTERMITTENT EPISODES OF SLEEP. CARDIAC LEIVA, REMAINS IN SR WITH NO C/O CP OR PRESSURE T/O THE NIGHT. SBP HAS BEEN STABLE WELL. RESPIRATORY LEIVA, MAINTAINS SPO2 >92% ON 3L VIA NC. BASELINE LINE O2 PT IS ON RA, DYSPNEA WELL TACHYPNEA NOTED WITH EXERTION. SUPRAPUBIC CATH PATENT AND DRAINING CLEAR/YELLOW URINE TO GRAVITY. PAIN HAS BEEN ADEQUATELY MANAGED ORDERD VIA EMAR WITH BOTH SCHEDULED AND PRN MEDICATIONS. ABLE TO STAND PIVOT TO BSC, BUT NO BM THIS SHIFT. NS RUNNING ORDERED VIA EMAR. PT STATES SHE WISHES TO RETURNED TO HER AT HOME SCHEDULE OF MEDICATIONS. WILL PASS THIS INFO ALONG TO DAY SHIFT AND FOR MD. NO NEW ORDERS AT THIS TIME, WILL REPORT TO ONCOMING RN. JIMMY CIFUENTES OF THIS NOTE
[2022-12-01 06:35] LABS: International Normalized Ratio 2.46; Prothrombin Time Results 24.5 Sec (9.7-11.5)
[2022-12-01 06:45] LABS: Albumin, Blood 2.8 g/dL (3.4-5.0); Albumin/Globulin Ratio 0.8 (0.8-1.8); Bilirubin, Total 0.4 mg/dL (0.1-1.0); Bun/Creatinine Ratio 21.4 (12.0-20.0); Calcium, Blood 8.3 mg/dL (8.5-10.1); Creatinine, Blood 0.61 mg/dL (0.40-1.00); Globulin, Blood 3.7 g/dL (2.2-4.0); Potassium, Blood 4.2 mmol/L (3.5-5.5); Total Protein, Blood 6.5 g/dL (6.4-8.2)
[2022-12-01 07:37] VITALS: BP 113/74
--- NOTE | 2022-12-01 09:40 | NUR ---
AM NOTE: PATIENT ALERT AND ORIENTED X4. PERRLA, WEARING GLASSES. DENIES N/T. 6/10 PAIN THIS AM, RELATED TO CHRONIC BACK/HIP PAIN. MEDICATED PER EMAR WITH GOOD RELIEF. ON 3L NASAL CANNULA SATING LOW-MID 90'S. LUNGS SOUNDING COARSE AND DIM IN BASES. SPUTUM SAMPLE SENT THIS AM. ENCOURAGED TO PRACTICE DEEP BREATHING. PT STATES IT IS EASIER TO TAKE DEEP BREATH THIS MORNING. CONTINUOUS PULSE OX IN PLACE. TELE SHOWING 1ST [facility] HEART BLOCK WITH NH INTERVAL MEASURING 0.22, YESTERDAY NH INTERVAL MEASUREMENT WAS 0.19. DR. SALAZAR UPDATED ON ROUNDING. HR 60-80'S. BP STABLE. DENIES CHEST PAIN/PRESSURE/PALPITATIONS. NO EDEMA NOTED. DENIES ABDOMINAL PAIN/NAUSEA. BOWEL TONES PRESENT. CHRONIC SUPRAPUBIC CATH IN PLACE. PATIENT STATES CATH WAS PLACED IN 2018 AND GETS CHANGED EVERY 2 WEEKS. NEXT CHANGE DUE ON 12/02. SITE WNL. GREEN CATH CLEANING WIPES TO COMPLETE CATH CARE THIS AM. EATING WNL. ACHS BLOOD SUGARS. SBA TO BSC. DR. SALAZAR BY THIS AM. PATIENT ABLE TO SPEAK WITH FAMILY ON PHONE. DENIES NEEDS AT THIS TIME.
--- NOTE | 2022-12-01 09:55 | NUR ---
PT A&OX4, PLEASANT AND COOPERATIVE WITH CARE. LUNG SOUNDS CLEAR YET DIMINISHED, PT DENIES SOB. HR AFIB 70'S-100'S, PT DENIES CHEST PAIN/PRESSURE. STRONG/EQUAL UPPER AND LOWER BILATERAL PULSES, NO SWELLING OF EXTREMITIES. PT STATED NORMAL FOR HER TO HAVE BOWEL MOVEMENT EVERY 2-3 DAYS. AT BEGINNING OF SHIFT PT STATED NO BOWEL MOVEMENT FOR 5 DAYS, PT HAD SMALL BOWEL MOVEMENT TODAY AROUND 9:12. PT HAS WEAKNESS OF R UPPER AND LOWER EXTREMITIES. PT UP IN CHAIR FOR BREAKFAST, THEN BACK IN BED RESTING. CALL LIGHT WITHIN REACH.
[2022-12-01 11:05] VITALS: BP 125/67
--- NOTE | 2022-12-01 11:15 | NUR ---
AFTERNOON BLOOD SUGAR READING 424. CALL PLACED TO DR. SALAZAR. ORDERS TO SWITCH ACHS HUMALOG FROM LOW SLIDING SCALE TO HIGH SLIDING SCALE AND TREAT 424 BLOOD SUGAR PER HIGH SLIDING SCALE. PATIENT UPDATED.
[2022-12-01 15:09] VITALS: BP 143/73
--- NOTE | 2022-12-01 16:56 | NUR ---
PATIENT REMOVED OXYGEN, TO BLOW NOSE AND FORGOT TO REPLACE. DESATED TO 83%. 3L OXYGEN REPLACED AND PATIENT O2 SATS NOW 92-93%. UNABLE TO TITRATE OXYGEN DOWN THIS SHIFT. PATIENT STATES SHE IS ABLE TO TAKE A DEEP BREATH EASIER, TODAY COMPARED TO YESTERDAY. REQUESTING NIGHT TIME MEDS AT 1900, PATIENT REPORTS THIS IS HER BEDTIME. BLOOD SUGARS HAVE BEEN TRENDING DOWN SINCE SWITCHED TO HIGH SLIDING SCALE. DINNER BLOOD SUGAR READING 345 AND 12 UNITS GIVEN PER SCALE. PATIENT EXPRESSED ANXIETY EARLIER ABOUT WANTING TO GO HOME AND MISSING HER SONS. SHE STATES "I'AM GOING TO GET TO GO HOME RIGHT?". THIS RN REASSURED PATIENT ABOUT TREATMENT PLAN AND USED THERAPEUTIC LISTENING. PATIENT FEELING BETTER PLANS TO CALL SONS ON PHONE.
[2022-12-02 00:37] VITALS: BP 109/72
--- NOTE | 2022-12-02 02:35 | NUR ---
END OF SHIFT: PATIENT HAS BEEN ALERT AND ORIENTED, PLEASANT, COOPERATIVE WITH CARE, MILDLY ANXIOUS. OXYGEN HAD TO BE TURNED TO 4L WHILE SLEEPING WELL. TO MAINTAIN >88%, BLOOD PRESSURE HAS BEEN IMPROVED DURING 0000 VITALS, HOWEVER, SHE NOTED SOME MINOR VAGINAL BLEEDING, NO BUMP TO OH WILL COTINUE TO MONITOR. ORAL INTAKE AND URINE OUTPUT WELL. WILL CONTINUE TO MONITOR UNTIL SHIFT CHANGE. CONCERNS: BLEEDING BOTH TINY AMOUNT SUPRAPUBIC INSERTION SITE AND SMALL AMOUNT FOR VAGINA. NO CHAD XRAY.
[2022-12-02 02:54] VITALS: BP 131/80
[2022-12-02 04:46] LABS: Hematocrit 35.2 % (33.0-51.0); Mean Corpuscular HGB 33.7 pg (26.0-34.0); Mean Corpuscular HGB Conc 34.1 g/dL (31.5-36.5); Mean Corpuscular Volume 99 fL (80-100); Mean Platelet Volume 9.2 fL (9.1-12.4); Platelet Count 237 K/mm3 (150-400); RDW Coefficient Variation 13.7 % (11.7-14.2); RDW Standard Deviation 50.4 fL (35.1-46.3); Red Blood Cell Count 3.56 M/mm3 (3.80-5.20); White Blood Cell Count 12.34 K/mm3 (4.00-11.30)
[2022-12-02 05:00] LABS: International Normalized Ratio 3.08; Prothrombin Time Results 30.3 Sec (9.7-11.5)
[2022-12-02 05:06] LABS: Albumin, Blood 2.7 g/dL (3.4-5.0); Anion Gap 7 mmol/L (6-16); Blood Urea Nitrogen 13 mg/dL (8-24); Bun/Creatinine Ratio 22.4 (12.0-20.0); CO2, Blood 20 mmol/L (21-32); Calcium, Blood 8.9 mg/dL (8.5-10.1); Chloride, Blood 111 mmol/L (98-108); Creatinine, Blood 0.58 mg/dL (0.40-1.00); Glomerular Filtration Rate 112 (60-); Glucose, Blood 288 mg/dL (70-99); Phosphorus, Blood 3.1 mg/dL (2.5-4.9); Potassium, Blood 4.3 mmol/L (3.5-5.5); Sodium, Blood 138 mmol/L (136-145)
[2022-12-02 07:33] VITALS: BP 125/83
--- NOTE | 2022-12-02 09:22 | NUR ---
AM NOTE: PATIENT ALERT AND ORIENTED X4. PERRLA, WEARING GLASSES. DENIES NUMBNESS/TINGLING. SBA TO CHAIR THIS AM. SITTING UP IN RECLINER FOR BREAKFAST. ON 3L NASAL CANNULA SATING LOW 90'S. LUNGS SOUNDING COARSE WITH EXPIRATORY WHEEZE. COUGHING AND PRODUCING MORE SPUTUM. SPUTUM SAMPLE SENT 12/01 AM. SUCTION SET UP AT BEDSIDE. PATIENT ENCOURAGED TO USE FLUTTER AND PRACTICE DEEP BREATHING. TELE SHOWING SR WITH HR 70-80'S. BP STABLE. DENIES CHEST PAIN/PRESSURE/PALPITATIONS. NO EDEMA NOTED. INR LABS INCREASED FROM YESTERDAY. PHARMACY TO MANAGE, PLAN TO HOLD TONIGHTS DOSE OF WARFARIN DUE TO INR BEING ABOVE 3. COMPLAINS OF SLIGHT ABDOMINAL TENDERNESS. DENIES CRAMPING OR NAUSEA. EATING AND VOIDING WNL. SUPRAPUBIC CATH IN PLACE. PLAN TO CHANGE OUT TODAY PER PATIENTS SCHEDULE. DRAINING CLEAR/YELLOW URINE TO GRAVITY. NO BLEEDING AT STOMA SITE. CLEANED THIS AM WITH GREEN CATH WIPES. SKIN OVERALL C/D/I. UP IN RECLINER AT THIS TIME, DENIES NEEDS. DR. SALAZAR BY TO SEE PATIENT THIS RN DISCCUSED WBC, DDIMER, INR, INCREASED SPUTUM PRODUCTION, AND LAST CONCRETE MIXING TRUCK DRIVER VAGINAL/SUPRAPUBIC CATH STOMA BLEEDING. ORDERS FOR MEDICAL STATUS NO TELE.
--- NOTE | 2022-12-02 10:20 | NUR ---
SUPRAPUBIC CATH CHANGED WITH CLINCIAL COORDINATOR, THIS RN AND BOAT HOP. 18 MOZAMBICAN, 10ML OF SALINE USED TO INFLATE BALLOON. STERILE TECHNIQUE USED WITH CLOSED CATHETER DRAINAGE BAG. CLEAR/YELLOW URINE DRAINING.
[2022-12-02 11:25] VITALS: BP 139/64
--- NOTE | 2022-12-02 12:18 | NUR ---
AFTERNOON BLOOD SUGAR 394. CALL PLACED TO DR. SALAZAR TO UPDATE. ORDERS TO GIVE INSULIN PER HIGH SLIDING SCALE. 15 UNITS OF SHORT ACTING GIVEN PER EMAR. PATIENTS MOM AT BEDSIDE VISITING.
--- NOTE | 2022-12-02 14:01 | NUR ---
UPON RECHECKING BLOOD SUGAR LATE AFTERNOON, READING 428. PATIENT DRANK SODA BROUGHT IN BY FAMILY, UNKNOWN BY THIS RN. CALL PLACED TO DR. SALAZAR. NEW ORDER FOR ONE TIME DOSE OF 8 UNITS HUMALOG. ORDER IN PLACE AND GIVEN TO PATIENT. PATIENT EDUCATED ON HIGH BLOOD SUGARS AND DIET. PATIENT AGGREABLE TO NOT DRINK SODA AND TO HOLD OFF ON FOOD UNTIL BLOOD SUGARS TRENDING DOWN. STATES HER BLOOD SUGARS WHEN SICK ARE NORMALLY 300-400. PATIENT ALSO EDUCATED ON HIGH SLIDING SCALE. WANTING TO TAKE NAP AT THIS TIME.
[2022-12-02 15:12] VITALS: BP 155/68
--- NOTE | 2022-12-02 17:20 | NUR ---
TRANSFER UP TO MEDICAL: NO ACUTE CHANGES. VITAL SIGNS REMAINS STABLE. ON 3L NASAL CANNULA SATING MID 90'S. COMPLAINED OF HEADACHE THIS AFTERNOON. MEDICATED PER EMAR WITH TYLENOL. SEE PREVIOUS NOTES FOR FURTHER UPDATES. REPORTED OFF TO MEDICAL FLOOR RN. PATIENT TRANSFERED VIA WHEELCHAIR WITH ALL PERSONAL BELONGINGS.
[2022-12-02 19:37] VITALS: BP 159/93
--- NOTE | 2022-12-02 20:46 | NUR ---
TRANSFER FROM PCU DX AND HX REPORTED BY CARLOS. DROPLET PRECAUTIONS PER PROTOCOL FOR RHINOVIRUS. SIGNS OF PNEUMONIA. SUPRAPUBIC CATHER REPLACED TODAY 12/02. DM WITH AC/HS CHECKS AND HIGH S/S. REPORT OF MULTIPLE ALLERGIES. PTN IS STANDBY ASSIST, USE OF CANE. EXTENSIVE MEDICAL HX. CONTINUE PLAN OF CARE.
--- NOTE | 2022-12-03 04:45 | NUR ---
SHIFT SUMMARY PATIENT HAD NO ACUTE CHANGES. AXO X4 AND SBA W/CANE TO BR. SUPRA PUBIC CATHETER DRAINING TO GRAVITY CLEAR YELLOW URINE. ON 3L O2 NC AND RA BASELINE. RT IN FOR BREATHING TX. CBG 115. PIVS REMAIN INTACT. IV ABX INFUSED. SCHEDULE OXYCONTIN 20 MG GIVEN FOR BACK PAIN. DENIES CHEST PAIN, SOB, AND N/V. VSS/AFEBRILE. HER THREE SONS IN FOR VISIT. COOPERATIVE WITH CARE. CALL LIGHT IN REACH. BED IN LOWEST POSITION. WILL CONTINUE TO MONITOR UNTIL DAY SHIFT NURSE ASSUMES CARE.
[2022-12-03 05:59] VITALS: BP 154/90
[2022-12-03 06:16] LABS: International Normalized Ratio 3.56; Prothrombin Time Results 34.8 Sec (9.7-11.5)
[2022-12-03 07:17] VITALS: BP 145/92
[2022-12-03 15:28] VITALS: BP 144/74
--- NOTE | 2022-12-03 17:57 | NUR ---
SHIFT SUMMARY NO ACUTE CHANGES DURING SHIFT. PT ALERT AND ORIENTED, CALLS APPROPRIATELY. PT REMAINS ON 3LNC, INDEPENDENT IN ROOM. CONTINUED IV ABX. SCHEDULED AND PRN PAIN MEDICATIONS ADMINISTERED MULTIPLE TIMES PER EMAR. WILL CONTINUE TO MONITOR. CALL LIGHT WITHIN REACH.
[2022-12-03 19:46] VITALS: BP 138/75
--- NOTE | 2022-12-04 04:25 | NUR ---
SHIFT SUMMARY NOC PT A/O X 4. PT STILL ON 3L/NC. SBA WITH FWW AND UNSTEADY GAIT AT TIMES. PT ON Q6H ABX TREATMENT. PERMACATH IN PLACE IN LUCW DRESSING IS HAS SOME BLOOD ON IT AND NEEDS CHANGING BY DIALYSIS NURSE. PT STARTED ON HEPARIN DRIP @ 25.2 MLS/HR FOR R IJ DVT. PT HGB WAS 7.6 YESTERDAY AND 1 UNIT OF PRBC IS READY IF AM LAB VALUE DROPS BELOW 7.0. PT ON TELE RUNNING ST @ 114 BPM. PT HAD ELEVATED BP FOR EVENING VS AND IV HYDRALAZINE GIVEN. FLUID RESTRICTION OF 1L A DAY STILL IN EFFECT. PT IS CURRENTLY RESTING WITH BED IN LOWEST POSITION, AND CALL LIGHT WITHIN REACH.
--- NOTE | 2022-12-04 04:57 | NUR ---
SHIFT SUMMARY NOC PT A/O X 4. NO ACUTE CHANGES TO REPORT. PT STILL ON 3L/NC. IV ABX. SCHEDULED AND PRN PAIN RX ADMINSTERED PER EMAR. PT HAD C/O OF BLOOD COMING FROM DRYNESS IN NARES FROM NC AND WAS SWITCHED TO FACE MASK. PT HAS SP CATHETER IN PLACE DRAINING CLEAR YELLOW URINE TO GRAVITY. PT IS EXPECTED TO DISCHARGE TUESDAY OR TUESDAY HOME. PT IS CURRENTLY RESTING WITH BED IN LOWEST POSITION, AND CALL LIGHT WITHIN REACH.
[2022-12-04 05:02] VITALS: BP 134/74
[2022-12-04 05:35] LABS: Hematocrit 35.5 % (33.0-51.0); Hemoglobin 12.4 g/dL (11.5-16.0); Mean Corpuscular HGB Conc 34.9 g/dL (31.5-36.5); Mean Corpuscular Volume 97 fL (80-100); Mean Platelet Volume 8.9 fL (9.1-12.4); Platelet Count 300 K/mm3 (150-400); RDW Coefficient Variation 13.7 % (11.7-14.2); RDW Standard Deviation 49.6 fL (35.1-46.3); Red Blood Cell Count 3.65 M/mm3 (3.80-5.20); White Blood Cell Count 10.34 K/mm3 (4.00-11.30)
[2022-12-04 05:53] LABS: International Normalized Ratio 2.13; Prothrombin Time Results 21.4 Sec (9.7-11.5)
[2022-12-04 06:19] LABS: Albumin, Blood 2.6 g/dL (3.4-5.0); Anion Gap 7 mmol/L (6-16); Blood Urea Nitrogen 10 mg/dL (8-24); Bun/Creatinine Ratio 19.7 (12.0-20.0); CO2, Blood 23 mmol/L (21-32); Calcium, Blood 8.6 mg/dL (8.5-10.1); Chloride, Blood 110 mmol/L (98-108); Creatinine, Blood 0.51 mg/dL (0.40-1.00); Glomerular Filtration Rate 115 (60-); Glucose, Blood 139 mg/dL (70-99); Phosphorus, Blood 3.9 mg/dL (2.5-4.9); Potassium, Blood 3.5 mmol/L (3.5-5.5); Sodium, Blood 140 mmol/L (136-145)
[2022-12-04 07:51] VITALS: BP 127/78
[2022-12-04] MEDS ORDERED: ALBU2.5V5 INH (16:09)
[2022-12-04] MEDS ORDERED: LACT PO (16:10)
[2022-12-04] MEDS ORDERED: HUMALOG KW100 UNIT/1 SC (16:11)
[2022-12-04] MEDS ORDERED: IPRAT-ALBUT 0.5-3 ML INH (16:12)
[2022-12-04] MEDS ORDERED: MOXI400 PO (16:13)
[2022-12-04] MEDS ORDERED: MIRALAX17 GM PO (16:13)
[2022-12-04] MEDS ORDERED: Prednisone10 MG PO (16:15)
--- NOTE | 2022-12-04 17:18 | NUR ---
DISCHARGE SUMMARY: PT WHEELED OUT IN CHAIR WITH ALL BELONGINGS, SON DROVE HOME VIA HOME VECHICLE. PT STATED UNDERSTANDING OF DISCHARGE PAPERS WITH NO QUESTIONS OR CONCERNS.
== END 2022-12-04 16:45 | disposition home or self-care (01) | DRG 871 ==
LOC: ER 10:23 → PCU 16:05 → MEDS 12-02 17:30 → ENPENDDIS 12-04 16:12 → MEDS 12-04 16:45
PROVIDERS: Emergency Medicine; ADMIT Internal Medicine
PROC: 3E03329 Introduction of Other Anti-infective into Peripheral Vein, Percutaneous Approach (ICD-10-PCS; principal; 2022-11-30)
PROC: 0T2BX0Z Change Drainage Device in Bladder, External Approach (ICD-10-PCS; 2022-12-02)
DX: A41.9 Sepsis, unspecified organism (principal); I50.33 Acute on chronic diastolic (congestive) heart failure; J12.89 Other viral pneumonia; J96.01 Acute respiratory failure with hypoxia; J44.0 Chronic obstructive pulmonary disease with (acute) lower respiratory infection; J44.1 Chronic obstructive pulmonary disease with (acute) exacerbation; D68.61 Antiphospholipid syndrome; T83.83XA Hemorrhage due to genitourinary prosthetic devices, implants and grafts, initial encounter; E11.65 Type 2 diabetes mellitus with hyperglycemia; G89.4 Chronic pain syndrome; I44.0 Atrioventricular block, first degree; T38.0X5A Adverse effect of glucocorticoids and synthetic analogues, initial encounter; I11.0 Hypertensive heart disease with heart failure; R65.20 Severe sepsis without septic shock; B97.10 Unspecified enterovirus as the cause of diseases classified elsewhere; B97.89 Other viral agents as the cause of diseases classified elsewhere; M54.9 Dorsalgia, unspecified; Z20.822 Contact with and (suspected) exposure to COVID-19; G43.909 Migraine, unspecified, not intractable, without status migrainosus; F17.210 Nicotine dependence, cigarettes, uncomplicated; Q05.9 Spina bifida, unspecified; Z86.73 Personal history of transient ischemic attack (TIA), and cerebral infarction without residual deficits; Z99.81 Dependence on supplemental oxygen; Z88.0 Allergy status to penicillin; Z88.2 Allergy status to sulfonamides; Z88.8 Allergy status to other drugs, medicaments and biological substances; Z88.1 Allergy status to other antibiotic agents; Z88.5 Allergy status to narcotic agent; Z86.14 Personal history of Methicillin resistant Staphylococcus aureus infection; Z98.890 Other specified postprocedural states; Z79.01 Long term (current) use of anticoagulants; Z91.041 Radiographic dye allergy status; Z79.899 Other long term (current) drug therapy; Z79.891 Long term (current) use of opiate analgesic; Z79.82 Long term (current) use of aspirin; Z79.02 Long term (current) use of antithrombotics/antiplatelets; Z79.84 Long term (current) use of oral hypoglycemic drugs; Z86.018 Personal history of other benign neoplasm; Y83.8 Other surgical procedures as the cause of abnormal reaction of the patient, or of later complication, without mention of misadventure at the time of the procedure
CPT/HCPCS: 0202U; 36415; 80053; 80069; 82947; 83605; 83880; 84145; 85025; 85027; 85379; 85610; 87040; 94640; 94664; 94760; 94761; 94762; 96365; 96367; 99285-25; A9270; J0456; J1940; J2405; J2920; J3370; J7030; J7050; J7512

== ENCOUNTER → 2022-11-30 | Outpatient (CLI) | payer MEDICARE, OTHER ==
[~2022-11-30] MED LIST changes: +ALBU2.5V5 INH; +HUMALOG KW100 UNIT/1 SC; +IPRAT-ALBUT 0.5-3 ML INH; +LACT PO; +MIRALAX17 GM PO; +MOXI400 PO; +Prednisone10 MG PO; +WARF5 PO
[2022-11-30 08:04] LABS: BASOPHILS ABSOLUTE AUTO 0.03 K/mm3 (0.00-0.23); BASOPHILS PERCENT AUTO 0 % (0-2); EOSINOPHILS ABSOLUTE AUTO 0.16 K/mm3 (0.00-0.68); EOSINOPHILS PERCENT AUTO 2 % (0-6); Hematocrit 37.7 % (33.0-51.0); IMMATURE GRAN ABSOLUTE AUTO 0.02 K/mm3 (0.00-0.10); IMMATURE GRAN PERCENT AUTO 0 % (0-1); LYMPHOCYTES PERCENT AUTO 10 % (21-46); MONOCYTES ABSOLUTE AUTO 0.33 K/mm3 (0.16-1.47); MONOCYTES PERCENT AUTO 4 % (4-13); Mean Corpuscular HGB 33.9 pg (26.0-34.0); Mean Corpuscular HGB Conc 34.5 g/dL (31.5-36.5); Mean Corpuscular Volume 98 fL (80-100); NEUTROPHILS ABSOLUTE AUTO 7.09 K/mm3 (1.96-9.15); NEUTROPHILS PERCENT AUTO 84 % (41-73); Platelet Count 174 K/mm3 (150-400); RDW Coefficient Variation 13.9 % (11.7-14.2); RDW Standard Deviation 50.3 fL (35.1-46.3); Red Blood Cell Count 3.83 M/mm3 (3.80-5.20); White Blood Cell Count 8.43 K/mm3 (4.00-11.30)
[2022-11-30 08:18] LABS: Albumin, Blood 2.9 g/dL (3.4-5.0); Albumin/Globulin Ratio 0.7 (0.8-1.8); Bilirubin, Total 0.6 mg/dL (0.1-1.0); Bun/Creatinine Ratio 5.4 (12.0-20.0); Calcium, Blood 8.1 mg/dL (8.5-10.1); Creatinine, Blood 0.93 mg/dL (0.40-1.00); Globulin, Blood 3.9 g/dL (2.2-4.0); Potassium, Blood 3.6 mmol/L (3.5-5.5); Total Protein, Blood 6.8 g/dL (6.4-8.2)
== END | disposition home or self-care (01) ==
LOC: LAB SHORT 08:00 → LAB 08:00
PROVIDERS: Physician Assistant
DX: R53.83 Other fatigue (principal)
CPT/HCPCS: 80053; 85025

== ENCOUNTER → 2022-12-21 | Outpatient (CLI) | payer MEDICARE, OTHER ==
[~2022-12-21] MED LIST changes: +ALBU2.5V5 INH; +HUMALOG KW100 UNIT/1 SC; +IPRAT-ALBUT 0.5-3 ML INH; +LACT PO; +MIRALAX17 GM PO; +MOXI400 PO; +Prednisone10 MG PO; +WARF5 PO
== END | disposition home or self-care (01) ==
LOC: LAB 14:54 → LAB SHORT 14:54
DX: N64.52 Nipple discharge (principal)
CPT/HCPCS: 87070; 87075; 87077; 87186; 87205

== ENCOUNTER → 2024-04-02 | Outpatient (CLI) | payer MEDICARE, OTHER ==
[2024-04-02 19:13] LABS: BASOPHILS ABSOLUTE AUTO 0.07 K/mm3 (0.00-0.23); BASOPHILS PERCENT AUTO 1 % (0-2); EOSINOPHILS ABSOLUTE AUTO 0.27 K/mm3 (0.00-0.68); EOSINOPHILS PERCENT AUTO 3 % (0-6); Hematocrit 42.6 % (33.0-51.0); Hemoglobin 14.7 g/dL (11.5-16.0); IMMATURE GRAN ABSOLUTE AUTO 0.02 K/mm3 (0.00-0.10); IMMATURE GRAN PERCENT AUTO 0 % (0-1); LYMPHOCYTES ABSOLUTE AUTO 3.15 K/mm3 (0.84-5.20); LYMPHOCYTES PERCENT AUTO 38 % (21-46); MONOCYTES ABSOLUTE AUTO 0.55 K/mm3 (0.16-1.47); MONOCYTES PERCENT AUTO 7 % (4-13); Mean Corpuscular HGB 35.2 pg (26.0-34.0); Mean Corpuscular HGB Conc 34.5 g/dL (31.5-36.5); Mean Corpuscular Volume 102 fL (80-100); Mean Platelet Volume 9.3 fL (9.1-12.4); NEUTROPHILS ABSOLUTE AUTO 4.23 K/mm3 (1.96-9.15); NEUTROPHILS PERCENT AUTO 51 % (41-73); Platelet Count 313 K/mm3 (150-400); RDW Coefficient Variation 13.7 % (11.7-14.2); RDW Standard Deviation 52.4 fL (35.1-46.3); Red Blood Cell Count 4.18 M/mm3 (3.80-5.20); White Blood Cell Count 8.29 K/mm3 (4.00-11.30)
[2024-04-02 20:21] LABS: Albumin, Blood 3.7 g/dL (3.4-5.0); Albumin/Globulin Ratio 1.1 (0.8-1.8); Bilirubin, Total 0.3 mg/dL (0.1-1.0); Bun/Creatinine Ratio 12.3 (12.0-20.0); Calcium, Blood 9.2 mg/dL (8.5-10.1); Creatinine, Blood 0.82 mg/dL (0.40-1.00); Follicle Stimulating Hormone 6.9 mIU/ml; Globulin, Blood 3.5 g/dL (2.2-4.0); Luteinizing Hormone 5.9 mIU/ml; Potassium, Blood 3.6 mmol/L (3.5-5.5); Total Protein, Blood 7.2 g/dL (6.4-8.2)
== END ==
LOC: LAB 18:14 → LAB SHORT 18:14
PROVIDERS: Registered Nurse Community Health
DX: Z01.419 Encounter for gynecological examination (general) (routine) without abnormal findings (principal)
CPT/HCPCS: 80053; 83001; 83002; 85025

== ENCOUNTER 2024-07-28 12:21 | Emergency (ER) | payer MEDICARE, OTHER ==
[~2024-07-28] VITALS: Ht 170.2 cm; Wt 91.2 kg
[2024-07-28 12:38] VITALS: BP 146/96
[2024-07-28] MEDS ORDERED: Cipro500 MG PO (15:59)
[2024-07-28] MEDS ORDERED: Ciprofloxacin 500 MG Tab PO ONE (16:00)
== END 2024-07-28 16:10 | disposition home or self-care (01) ==
LOC: ER 12:21
DX: H66.91 Otitis media, unspecified, right ear (principal); E11.9 Type 2 diabetes mellitus without complications; J44.9 Chronic obstructive pulmonary disease, unspecified; F17.210 Nicotine dependence, cigarettes, uncomplicated; Z86.73 Personal history of transient ischemic attack (TIA), and cerebral infarction without residual deficits; Z79.84 Long term (current) use of oral hypoglycemic drugs; Z79.899 Other long term (current) drug therapy; Z79.52 Long term (current) use of systemic steroids; Z88.0 Allergy status to penicillin; Z88.1 Allergy status to other antibiotic agents; Z88.5 Allergy status to narcotic agent; Z91.041 Radiographic dye allergy status; Z88.2 Allergy status to sulfonamides; Z88.8 Allergy status to other drugs, medicaments and biological substances
CPT/HCPCS: 70486; 99283-25; A9270

== ENCOUNTER → 2024-08-03 | Outpatient (CLI) | payer MEDICARE, OTHER ==
[2024-08-03 16:04] LABS: Adenovirus F 40/41 Not Detected (NOT DETECT); Astrovirus Not Detected (NOT DETECT); Campylobacter Sp Not Detected (NOT DETECT); Cryptosporidium Not Detected (NOT DETECT); Cyclospora Cayetanensis Not Detected (NOT DETECT); E. Coli O157 Not Detected (NOT DETECT); Entamoeba Histolytica Not Detected (NOT DETECT); Enteroaggregative E. coli-EAEC Not Detected (NOT DETECT); Enteropathogenic E. coli-EPEC Not Detected (NOT DETECT); Enterotoxigenic E. coli-ETEC Not Detected (NOT DETECT); Giardia Lamblia Not Detected (NOT DETECT); Norovirus GI/GII Not Detected (NOT DETECT); Plesiomonas Shigelloides Not Detected (NOT DETECT); Rotavirus A Not Detected (NOT DETECT); Salmonella Sp Not Detected (NOT DETECT); Sapovirus Not Detected (NOT DETECT); Shiga Toxin-prod E. coli-STEC Not Detected (NOT DETECT); Shigella/Enteroin E. coli-EIEC Not Detected (NOT DETECT); Vibrio Cholerae Not Detected (NOT DETECT); Vibrio Sp Not Detected (NOT DETECT); Yersinia Enterocolitica Not Detected (NOT DETECT)
== END | disposition home or self-care (01) ==
LOC: LAB SHORT 11:37 → LAB 11:37
PROVIDERS: Family Medicine
DX: K52.9 Noninfective gastroenteritis and colitis, unspecified (principal)
CPT/HCPCS: 87507; 89055

== ENCOUNTER 2024-10-11 04:03 | Day surgery (SDC) | payer MEDICARE, OTHER | END 2024-10-11 23:00 | disposition home or self-care (01) | LOC: WOUND 04:03 | DX: E11.622 Type 2 diabetes mellitus with other skin ulcer (principal); L97.521 Non-pressure chronic ulcer of other part of left foot limited to breakdown of skin; E11.42 Type 2 diabetes mellitus with diabetic polyneuropathy; E03.9 Hypothyroidism, unspecified; I10 Essential (primary) hypertension; J45.909 Unspecified asthma, uncomplicated; M32.9 Systemic lupus erythematosus, unspecified; M79.7 Fibromyalgia; F17.210 Nicotine dependence, cigarettes, uncomplicated; Z88.0 Allergy status to penicillin; Z88.2 Allergy status to sulfonamides; Z88.5 Allergy status to narcotic agent; Z88.8 Allergy status to other drugs, medicaments and biological substances | CPT/HCPCS: G0463 ==

== ENCOUNTER 2024-10-18 00:06 | Day surgery (SDC) | payer MEDICARE, OTHER ==
[2024-10-19] MEDS ORDERED: CAL-CITRATE PL1 EAC2 PO (17:09)
== END 2024-10-18 23:00 | disposition home or self-care (01) ==
LOC: WOUND 00:06
DX: E11.621 Type 2 diabetes mellitus with foot ulcer (principal); L97.529 Non-pressure chronic ulcer of other part of left foot with unspecified severity
CPT/HCPCS: G0463

== ENCOUNTER 2024-10-19 14:03 | Emergency (ER) | payer MEDICARE, OTHER ==
[~2024-10-19] VITALS: Ht 170.2 cm; Wt 92.1 kg
[2024-10-19 14:20] VITALS: BP 163/97
[2024-10-19 15:01] LABS: BASOPHILS ABSOLUTE AUTO 0.09 K/mm3 (0.00-0.23); BASOPHILS PERCENT AUTO 1 % (0-2); EOSINOPHILS PERCENT AUTO 2 % (0-6); Hematocrit 42.8 % (33.0-51.0); Hemoglobin 14.7 g/dL (11.5-16.0); IMMATURE GRAN ABSOLUTE AUTO 0.03 K/mm3 (0.00-0.10); IMMATURE GRAN PERCENT AUTO 0 % (0-1); LYMPHOCYTES ABSOLUTE AUTO 3.26 K/mm3 (0.84-5.20); LYMPHOCYTES PERCENT AUTO 34 % (21-46); MONOCYTES PERCENT AUTO 5 % (4-13); Mean Corpuscular HGB 33.5 pg (26.0-34.0); Mean Corpuscular HGB Conc 34.3 g/dL (31.5-36.5); Mean Corpuscular Volume 98 fL (80-100); Mean Platelet Volume 9.3 fL (9.1-12.4); NEUTROPHILS ABSOLUTE AUTO 5.61 K/mm3 (1.96-9.15); NEUTROPHILS PERCENT AUTO 58 % (41-73); Platelet Count 297 K/mm3 (150-400); RDW Standard Deviation 46.6 fL (35.1-46.3); Red Blood Cell Count 4.39 M/mm3 (3.80-5.20); White Blood Cell Count 9.69 K/mm3 (4.00-11.30)
[2024-10-19 15:15] LABS: International Normalized Ratio 2.2; Prothrombin Time Results 22.2 Sec (9.7-11.5)
[2024-10-19 15:26] LABS: Bun/Creatinine Ratio 9.8 (12.0-20.0); Calcium, Blood 8.2 mg/dL (8.5-10.1); Creatinine, Blood 0.72 mg/dL (0.40-1.00); Potassium, Blood 3.6 mmol/L (3.5-5.5)
[2024-10-19] MEDS ORDERED: CAL-CITRATE PL1 EAC2 PO (17:09)
== END 2024-10-19 17:12 | disposition home or self-care (01) ==
LOC: ER 14:03
PROVIDERS: Emergency Medicine
DX: L97.329 Non-pressure chronic ulcer of left ankle with unspecified severity (principal); R22.42 Localized swelling, mass and lump, left lower limb; E58 Dietary calcium deficiency; J44.9 Chronic obstructive pulmonary disease, unspecified; E11.9 Type 2 diabetes mellitus without complications; F17.210 Nicotine dependence, cigarettes, uncomplicated; Z88.0 Allergy status to penicillin; Z88.1 Allergy status to other antibiotic agents; Z88.8 Allergy status to other drugs, medicaments and biological substances; Z88.5 Allergy status to narcotic agent; Z91.041 Radiographic dye allergy status; Z88.2 Allergy status to sulfonamides; Z79.2 Long term (current) use of antibiotics; Z79.899 Other long term (current) drug therapy; Z79.84 Long term (current) use of oral hypoglycemic drugs; Z79.4 Long term (current) use of insulin; Z79.891 Long term (current) use of opiate analgesic; Z79.01 Long term (current) use of anticoagulants
CPT/HCPCS: 73600; 80048; 83735; 85025; 85610; 85730; 93926; 93971; 99284-25

== ENCOUNTER 2024-10-25 04:13 | Day surgery (SDC) | payer MEDICARE, OTHER ==
[~2024-10-25 04:13] MED LIST changes: +CAL-CITRATE PL1 EAC2 PO
== END 2024-10-25 23:00 | disposition home or self-care (01) ==
LOC: WOUND 04:13
DX: E11.622 Type 2 diabetes mellitus with other skin ulcer (principal); L97.329 Non-pressure chronic ulcer of left ankle with unspecified severity; G62.9 Polyneuropathy, unspecified
CPT/HCPCS: G0463

== ENCOUNTER → 2025-06-27 | Outpatient (CLI) | payer MEDICARE, OTHER | LOC: LAB SHORT 18:50 → LAB 18:50 | DX: R31.9 Hematuria, unspecified (principal) | CPT/HCPCS: 87077; 87086; 87186 ==